=== PATIENT | female | born 1950 | race Caucasian/White ===

== ENCOUNTER → 2018-07-24 | Outpatient (CLI) | payer OTHER | LOC: M.RAD 07-19 10:30 | DX: Z12.31 Encounter for screening mammogram for malignant neoplasm of breast (principal) ==

== ENCOUNTER → 2018-08-07 | Outpatient (CLI) | payer OTHER | LOC: M.ULTRA 07-31 10:00 → M.RAD 08-01 09:40 → M.ULTRA 08-01 10:00 → M.RAD 08-06 10:20 → M.ULTRA 08-06 11:30 → M.RAD 08:29 → M.ULTRA 09:30 | DX: N60.01 Solitary cyst of right breast (principal); N63.20 Unspecified lump in the left breast, unspecified quadrant ==